=== PATIENT | male | born 1990 | race Caucasian/White ===

== ENCOUNTER 2025-04-08 11:22 | Emergency (ER) | payer BC ==
[~2025-04-08] VITALS: Ht 172.7 cm; Wt 99.0 kg
[2025-04-08 11:28] VITALS: O2SAT 99
[2025-04-08] MEDS ORDERED: CYCL5TAB3 MT (13:38)
[2025-04-08] MEDS ORDERED: ACET-2708 MT (13:38)
[2025-04-08] MEDS ORDERED: IBUP-2028 MT (13:38)
[2025-04-08] MEDS: KETOROLAC 30MG/ML VIAL IM ONE (13:45)
[2025-04-08] MEDS: ACETAMINOPHEN 325MG TABLET PO ONE (13:52)
[2025-04-08 13:54] VITALS: BP 123/70; PULSE 84; RESP 14; TEMP 36.7; O2SAT 99
== END 2025-04-08 13:56 | disposition home or self-care (01) ==
LOC: ER 11:22
DX: S39.012A Strain of muscle, fascia and tendon of lower back, initial encounter (principal); S16.1XXA Strain of muscle, fascia and tendon at neck level, initial encounter; M51.372 Other intervertebral disc degeneration, lumbosacral region with discogenic back pain and lower extremity pain; V49.9XXA Car occupant (driver) (passenger) injured in unspecified traffic accident, initial encounter; Y93.89 Activity, other specified; Y92.89 Other specified places as the place of occurrence of the external cause; Y99.8 Other external cause status
CPT/HCPCS: 99283; J1885; Z7610 ×2